=== PATIENT | female | born 1995 | race Caucasian/White ===

== ENCOUNTER 2023-12-27 18:43 | Emergency (ER) | payer BC, SELFPAY ==
--- NOTE | ~2023-12-27 | XR_ITS ---
EXAMINATION: XR chest 2V Exam Date/Time: 12/27/2023 19:35 CDT HISTORY: palpitation Comparison: 03/07/2021. RESULT: Lines, tubes, and devices: None. Lungs and pleura: Clear. Cardiomediastinal silhouette: Stable. Other: No acute osseous or upper abdominal finding. IMPRESSION: No acute cardiopulmonary process. Reviewed, dictated and finalized at location K.
[2023-12-27 18:52] VITALS: BP 146/89; PULSE 108; RESP 20; TEMP 36.6; O2SAT 100
--- NOTE | 2023-12-27 18:59 | ECG_ITS ---
SEE SCANNED COPY FOR CONFIRMED REPORT MTDD
[2023-12-27 19:18] LABS: Basophils Absolute Auto 0.1 K/mm3 (0.0-0.1); Basophils Percent Auto 0.9 % (0.2-1.2); Eosinophils Absolute Auto 0.1 K/mm3 (0-0.3); Eosinophils Percent Auto 0.7 % (0-4.4); Hematocrit 39.7 % (37.0-47.0); Hemoglobin 13.3 g/dL (12.0-15.0); Immature Granulocyte Absolute 0.01 K/mm3 (0.00-0.031); Immature Granulocyte Percent A 0.1 % (0-0.5); Lymphocytes Absolute Auto 2.54 K/mm3 (0.9-3.2); Lymphocytes Percent Auto 31.3 % (18.3-44.2); Mean Corpuscular HGB Conc 33.5 g/dl (32-36); Mean Corpuscular Hemoglobin 31.4 pg (26-34); Mean Corpuscular Volume 93.9 fl (80-100); Mean Platelet Volume 9.3 fl (7.4-10.4); Monocytes Absolute Auto 0.8 K/mm3 (0.1-0.6); Monocytes Percent Auto 9.2 % (2.6-8.5); Neutrophils Absolute Auto 4.7 K/mm3 (1.3-6.7); Neutrophils Percent Auto 57.8 % (45.5-73.1); Platelet Count Result 248 k/mm3 (150-375); Red Blood Count 4.23 M/mm3 (4.2-5.4); Red Cell Distribution Width 11.9 % (11.5-14.5); White Blood Count 8.1 K/mm3 (4.5-10.0)
[2023-12-27 19:29] LABS: Alanine Aminotransferase 17 U/L (6-35); Albumin Level 4.5 g/dL (3.5-5.1); Alkaline Phosphatase 46 U/L (38-126); Anion Gap 6 mmol/L (4-12); Aspartate Amino Transferase 21 U/L (14-36); Bilirubin,Total 0.4 mg/dL (0.2-1.3); Blood Urea Nitrogen 11 mg/dL (7-17); Calcium 8.8 mg/dL (8.4-10.2); Carbon Dioxide 24 mmol/L (22-30); Chloride 109 mmol/L (98-107); Estimated CRCL calculation 83 ml/min; Estimated Glomerular Filt Rate > 60; Glucose 95 mg/dL (65-110); Lipase 59 U/L (23-300); Potassium 3.8 mmol/L (3.4-5.0); Sodium 139 mmol/L (137-145)
[2023-12-27 19:39] LABS: Prothrombin Time 13.6 Seconds (11.1-14.7)
[2023-12-27 19:40] LABS: Partial Thromboplastin Time 27.8 Seconds (22.3-36.8); Troponin I < 0.012 ng/mL (0.000-0.034)
[2023-12-27 19:58] VITALS: PULSE 102
[2023-12-27 19:59] VITALS: BP 135/83; PULSE 109; RESP 12; TEMP 36.8; O2SAT 100
[2023-12-27 20:03] VITALS: O2SAT 100
--- NOTE | 2023-12-27 20:15 | ED.GENADULT ---
HPI - General Adult General Chief complaint: Arrhythmia/Palpitations Stated complaint: Increased Hr and BP Time Seen by Provider: 12/27/23 20:02 History of Present Illness HPI narrative: This is a 28-year-old female presenting with elevated heart rate. Patient says she was full-term watery earlier today when her heart rate got up to the 150s. She then sat down and tried to calm down and decreased the 120s and a return to normal. She then went to her family's house for dinner her heart rate increased again. He then took her blood pressure and was elevated at 1 50/90. She then came to the hospital evaluation patient notes that she has had some chills and feels tired but denies fevers, chest pain difficulty breathing abdominal pain urinary symptoms. No nausea vomiting or diarrhea. No lower extremity edema, recent surgeries cancer trauma or other risk factors for DVT PE.. She is on OCPs control. Related Data Allergies Allergy/AdvReac Type Severity Reaction Status Date / Time acetaminophen Allergy Mild Unknown Verified 01/02/23 11:09 [From Tylenol-Codeine] codeine Allergy Mild Unknown Verified 01/02/23 11:09 [From Tylenol-Codeine] PMF Family History Family History Other Diabetes mellitus Heart disease History of cancer Hypertension Social History Social History Smoking status: Never smoker Alcohol intake: current Substance use: never Substance use type: does not use Lack of Transportation: No Lack of Food: Never True Current Housing: I Have Housing Concerned About Future Housing: No Difficulty Paying Gas/Electric Bills: No Difficulty Paying for Meds: No Currently Unemployed: No Difficulty w/ Childcare or Family Care: No Exam Narrative: APPEARANCE: No apparent distress. Head: atraumatic. EYES: EOMI, NOSE: Atraumatic NECK: Trachea midline RESPIRATORY: No increased rate of breathing CT AP CARDIOVASCULAR: Heart rate varies between 90-110 during the interview, no peripheral edema ABDOMINAL: Non-distended soft nontender MUSCULOSKELETAl: No obvious deformities NEURO: Alert. Moving 4/4 extremities SKIN:: Warm, dry. Normal color PSYCHIATRIC: Normal affect Course Vital Signs Vital signs: Vital Signs Temperature 97.8 F 12/27/23 18:52 Pulse Rate 108 H 12/27/23 18:52 Respiratory Rate 20 12/27/23 18:52 Blood Pressure 146/89 H 12/27/23 18:52 Pulse Oximetry 100 12/27/23 18:52 Oxygen Delivery Room Air 12/27/23 18:52 Temperature 98.2 F 12/27/23 19:59 Pulse Rate 109 H 12/27/23 19:59 Respiratory Rate 12 12/27/23 19:59 Blood Pressure 135/83 12/27/23 19:59 Pulse Oximetry 100 12/27/23 20:03 Oxygen Delivery Room Air 12/27/23 20:03 Medical Decision Making MDM Narrative Medical decision making narrative: -Course: 28-year-old female presenting with tachycardia. Patient is not tachycardic here. Patient's workup in the ED was negative including troponins D-dimer TSH drug screen. Patient states follow-up with primary care physician for further management. -DDX includes but is not limited to: Abnormal tachycardia, DVT/PE, dehydration -independent interpretation of studies: Labs reviewed within normal limits. EKG reviewed and unremarkable. CXR normal. -Shared decision making / Disposition: discharged. Vital Signs Vital Signs: Vital Signs Temperature 97.8 F 12/27/23 18:52 Pulse Rate 108 H 12/27/23 18:52 Respiratory Rate 20 12/27/23 18:52 Blood Pressure 146/89 H 12/27/23 18:52 Pulse Oximetry 100 12/27/23 18:52 Oxygen Delivery Room Air 12/27/23 18:52 Temperature 98.2 F 12/27/23 19:59 Pulse Rate 109 H 12/27/23 19:59 Respiratory Rate 12 12/27/23 19:59 Blood Pressure 135/83 12/27/23 19:59 Pulse Oximetry 100 12/27/23 20:03 Oxygen Delivery Room Air 12/27/23 20:03 Lab [facility]
[2023-12-27 20:42] LABS: D Dimer < 0.27 ug/mL (<0.48)
[2023-12-27] MEDS: SODIUM CHLORIDE 0.9% IV 1,000 ML 999 ML IV CONT (20:43)
[2023-12-27 20:51] LABS: Barbiturate Screen Urine Negative (Negative); Benzodiazepines Screen Urine Negative (Negative)
[2023-12-27 20:52] LABS: Amphetamine Screen Urine Negative (Negative); Cannabinoid Screen Urine Negative (Negative); Cocaine Screen Urine Negative (Negative); Methadone Screen Urine Negative (Negative); Opiate Screen Urine Negative (Negative)
[2023-12-27 20:54] VITALS: BP 133/81; PULSE 81; RESP 16; O2SAT 99
[2023-12-27 21:15] LABS: Phencyclidine Screen Urine Negative (Negative)
== END 2023-12-27 21:22 | disposition home or self-care (01) ==
PROVIDERS: Emergency Medicine; Emergency Provider Emergency Medicine
DX: R00.2 Palpitations (principal)
CPT/HCPCS: 36415; 71046; 80053; 80307; 81025; 83690; 84443; 84484; 85025; 85380; 85610; 85730; 93005; 96360; 99284; J7030

== ENCOUNTER 2024-01-29 12:46 | Outpatient (CLI) | payer BC, SELFPAY ==
--- NOTE | 2024-01-29 | ECHO_ITS ---
Patient Info Name: Mary Hoffman Age: 28 years : 1995 Gender: Female Ht: 62 in Wt: 145 lbs BSA: 1.71 m2 HR: 106 bpm BP: 126 / 96 mmHg Heart Rhythm: Sinus Rhythm, Tachycardia Technical Quality: Fair Exam Date: 01/29/2024 1:08 PM Exam Location: Echo Lab Patient Status: Outpatient Admit Date: 01/29/2024 Staff Ordering Physician: ReinaldoRavin PA-C Receptionist Nurse: Trav eNlson RDCS Attending Provider: Ravin Dowell PA-C Exam Type: CA echo doppler color flow Study Info Indications R00.2 - Palpitations Complete two-dimensional, color flow and Doppler transthoracic echocardiogram is performed. Summary 1. Complete two-dimensional, color flow and Doppler transthoracic echocardiogram is performed. 2. Left ventricular chamber dimension is normal. 3. Left ventricular systolic function is normal, estimated at 60-65%. 4. The left ventricular diastolic function is normal. 5. Right ventricular systolic function is normal. 6. No significant valvular disease. Left Ventricle Left ventricular chamber dimension is normal. Left ventricular systolic function is normal, estimated at 60-65%. There is no increased left ventricular wall thickness. The left ventricular diastolic function is normal. Right Ventricle Right ventricular chamber dimension is normal. Right ventricular systolic function is normal. Left Atria Left atrial chamber dimension is normal. Right Atria Right atrial chamber dimension is normal. Atrial Septum Intact interatrial septum visualized by color flow imaging. Aortic Valve The aortic valve is trileaflet. There is no aortic valve stenosis. There is no aortic valve regurgitation. Pulmonic Valve The pulmonic valve is not well visualized. Mitral Valve The mitral valve has normal leaflets. There is no mitral valve regurgitation. Tricuspid Valve There is trace tricuspid valve regurgitation. Pericardium/Pleural There is no pericardial effusion. Inferior Vena Cava Normal inferior vena cava with >50% collapse upon inspiration consistent with normal right atrial pressure, 3 mmHg. Aorta The aortic root size at the sinus of Valsalva is normal. Left Ventricular Outflow Tract Name Value Normal LVOT 2D LVOT Diameter 1.9 cm LVOT Doppler LVOT Peak Gradient 3 mmHg LVOT Mean Gradient 2 mmHg LVOT VTI 16 cm LVOT VTI/AV VTI Ratio 0.9 LVOT Stroke Volume 45 ml LVOT CO 3.9 l/min LVOT CI 2.3 l/min/m2 Pulmonic Valve Name Value Normal RVOT Doppler RVOT Peak Gradient 2 mmHg PV Doppler PV Peak Gradient 4 mmHg Mitral Valve Name
--- NOTE | 2024-02-03 14:29 | P.PCNHOL_ITS ---
Holter/Event Monitor Holter/Event Monitor Date of procedure: 02/03/24 Holter/Event Procedure: 48 Hr Holter Monitor Diagnosis: Palpitations Indications: Palpitations Image/Tracing Quality: Adequate. Total analysis of 47 hours and 59 minutes. Findin. Predominant rhythm is sinus rhythm with an average heart rate of 89 beats per minute. The minimum heart rate was 52 beats per minute. The maximum heart rate was 156 beats per minute. 2. No evidence of atrial fibrillation, significant pauses, heart block or ventri cular tachycardia. 3. There was 1 episode of SVT that lasted for 10 minutes and 18 seconds, at a heart rate of 156 beats per minute. 4. PAC burden is <0.1%. 5. No PVCs. 6. No patient reported symptoms.
== END 2024-01-29 12:47 | disposition home or self-care (01) ==
PROVIDERS: PCP Physician Assistant; Visit Provider Physician Assistant
DX: R00.2 Palpitations (principal)
CPT/HCPCS: 93225; 93226; 93306